=== PATIENT | male | born 1970 | race African-American/Black ===

== ENCOUNTER 2021-04-18 19:11 | Emergency (ER) | payer SELFPAY ==
[2021-04-18] MEDS ORDERED: Acetaminophen 500 MG TAB ONE (21:01)
[2021-04-19 13:03] LABS: SARS-CoV-2 PCR by NAA DETECTED (NotDetected)
== END 2021-04-18 22:20 | disposition home or self-care (01) ==
LOC: ERS 19:11
DX: U07.1 COVID-19 (principal)
CPT/HCPCS: 71045; U0003; U0005

== ENCOUNTER 2025-08-06 17:52 | Emergency (ER) | payer SELFPAY | END 2025-08-06 20:30 | disposition home or self-care (01) | LOC: ERS 17:52 | DX: T78.19XA Other adverse food reactions, not elsewhere classified, initial encounter (principal); R21 Rash and other nonspecific skin eruption | CPT/HCPCS: 96372; 99282; J2919 ==